=== PATIENT | male | born 1985 | race Caucasian/White ===

== ENCOUNTER 2018-05-02 20:47 | Emergency (ER) | payer SELFPAY, OTHER ==
[2018-05-02] MEDS: HYDROmorphONE 1 MG/ML SYG IV (23:00)
[2018-05-02] MEDS: SOD CHLORIDE 0.9% 1,000 ML IV (23:00)
[2018-05-02] MEDS: LORAZEPAM 2 MG INJ IV ×2 (23:00→23:39)
[2018-05-02] MEDS: FAMOTIDINE 20 MG INJ IV (23:00)
[2018-05-02] MEDS: ONDANSETRON 4 MG INJ IV (23:00)
[2018-05-02 23:02] LABS: ADD MAN DIFF? NO
[2018-05-02 23:03] LABS: WHITE BLOOD COUNT 13.4 10^3/ul (4.8-10.8)
[2018-05-02 23:03] LABS: BASOPHILS % 0.2 % (0.0-2.0); EOSINOPHILS % 0.1 % (0.0-7.0); HEMATOCRIT 49.8 % (42.0-52.0); HEMOGLOBIN 17.2 g/dl (14.0-18.0); LYMPHOCYTES # 3.7 10^3/ul (0.8-2.9); LYMPHOCYTES % 27.7 % (15.0-51.0); MEAN CORPUSCULAR HEMOGLOBIN 32.3 pg (29.0-33.0); MEAN CORPUSCULAR HGB CONC 34.5 g/dl (32.0-37.0); MEAN CORPUSCULAR VOLUME 93.6 fl (82.0-101.0); MEAN PLATELET VOLUME 9.1 fl (7.4-10.4); MONOCYTE # 0.9 10^3/ul (0.3-0.9); MONOCYTES % 6.5 % (0.0-11.0); NEUTROPHIL # 8.7 10^3/ul (1.6-7.5); NEUTROPHILS % 64.8 % (39.0-77.0); PLATELET COUNT 297 10^3/UL (140-415); RED BLOOD COUNT 5.32 10^6/ul (4.70-6.10); RED CELL DISTRIBUTION WIDTH 13.4 % (11.5-14.5)
[2018-05-02] MEDS: MULTIVITAMINS 10 ML, THIAMINE 100 MG, FOLIC ACID 1 MG, MAGNESIUM SULFATE 2 GM in SOD CH... IV (23:18)
[2018-05-02 23:21] LABS: ALANINE AMINOTRANSFERASE 60 IU/L (13-69); ALBUMIN 4.5 g/dl (3.3-4.9); ALBUMIN/GLOBULIN RATIO 1.09; ALKALINE PHOSPHATASE 97 IU/L (42-121); ANION GAP 20 (8-16); ASPARTATE AMINO TRANSFERASE 45 IU/L (15-46); BILIRUBIN,INDIRECT 0.2 mg/dl (0-1.1); BILIRUBIN,TOTAL 0.2 mg/dl (0.2-1.3); BLOOD UREA NITROGEN 7 mg/dl (7-20); CARBON DIOXIDE 30 mmol/L (21-31); CHLORIDE 104 mmol/L (97-110); CREATININE 0.99 mg/dl (0.61-1.24); GLUCOSE 120 mg/dl (70-220); LIPASE 56 U/L (23-300); POTASSIUM 3.7 mmol/L (3.5-5.1); SODIUM 150 mmol/L (135-144); TOTAL PROTEIN 8.6 g/dl (6.1-8.1)
[2018-05-03] MEDS: LIDOCAINE/MYLANTA 40 ML BTL PO (00:34)
[2018-05-03] MEDS: BELLADONNA/PHENOBARBITAL TAB PO (00:34)
[2018-05-03] MEDS: DICYCLOMINE 20 MG INJ IM (02:13)
== END 2018-05-03 02:34 | disposition home or self-care (01) ==
LOC: E/R 20:47
DX: K29.20 Alcoholic gastritis without bleeding (principal); F10.10 Alcohol abuse, uncomplicated; R40.2142 Coma scale, eyes open, spontaneous, at arrival to emergency department; R40.2252 Coma scale, best verbal response, oriented, at arrival to emergency department; R40.2362 Coma scale, best motor response, obeys commands, at arrival to emergency department
CPT/HCPCS: 36415; 74176; 80053; 82962; 83690; 85025; 96372; 96374; 96375; 99285-25